=== PATIENT | female | born 1980 | race Caucasian/White ===

== ENCOUNTER 2016-10-17 10:25 | Observation (INO) | payer MEDICAID ==
[~2016-10-17] VITALS: Ht 182.9 cm; Wt 97.5 kg
[~2016-10-17 10:25] MED LIST: METH10T PO; OXYC15TA48 PO
[2016-10-17 11:01] VITALS: BP 136/80
[2016-10-17 13:20] LABS: Partial Thromboplastin Time 21.7 sec (22.64-33.71); Prothrombin Time 9.4 sec (9.37-12.3)
[2016-10-17 13:23] LABS: INR 0.86 (0.9-1.15)
[2016-10-17 13:26] LABS: Basophils # (auto) 0.1 uL; Basophils % (auto) 0.7 % (0.0-2.0); DEFINITIVE VIEW TRANSMISSION; Eosinophils # (auto) 0 uL; Eosinophils % (auto) 0.4 % (0.0-7.0); Hematocrit 27.2 % (36.0-46.0); Hemoglobin 8.7 g/dL (12.2-16.2); Lymphocytes # (auto) 2.6 uL; Lymphocytes % (auto) 22.1 % (10.0-50.0); Mean Corpuscular Hemoglobin 21.4 pg (28.0-32.0); Mean Corpuscular Hgb Conc. 31.8 g/dL (32.0-36.0); Mean Corpuscular Volume 67.3 fL (80.0-100.0); Mean Platelet Volume 10.4 fL (7.4-10.4); Monocytes # (auto) 0.7 uL; Monocytes % (auto) 5.9 % (0.0-12.0); Neutrophils # (auto) 8.3 uL; Neutrophils % (auto) 70.9 % (37.0-80.0); Platelet Count (auto) 291 10^3/uL (140-450); White Blood Cell 11.7 10^3/uL (4.4-10.8)
[2016-10-17 13:32] LABS: Albumin 2.4 g/dL (3.4-5.0); BUN/Creatinine Ratio 10.6; Bilirubin, Total 0.5 mg/dL (0.2-1.0); Calcium 8.1 mg/dL (8.5-10.1); Potassium 3.8 mmol/L (3.5-5.1); Total Protein 6.3 g/dL (6.4-8.2)
[2016-10-17 13:39] LABS: Urine Bilirubin Negative (Negative); Urine Blood Negative /uL (Negative); Urine Color Yellow (Yellow); Urine Glucose Normal (Normal); Urine Ketone Negative (Negative); Urine Nitrite Negative (Negative); Urine RBC <1 /hpf (0 - 4); Urine Squamous Epithelial Cell FEW /hpf (<5); Urine pH 7.5 (5.0-8.0)
[2016-10-17 14:02] LABS: Platelet Estimate Adequate
[2016-10-17 14:03] LABS: Anisocytosis Moderate; Hypochromia Moderate; Microcytosis Moderate; Ovalocytes FEW
== END 2016-10-17 15:00 | disposition home or self-care (01) | DRG 566 ==
LOC: ER 10:26 → LDRP 11:10
PROVIDERS: ADMIT Obstetrics & Gynecology; ATTEND Obstetrics & Gynecology
DX: O9A.213 Injury, poisoning and certain other consequences of external causes complicating pregnancy, third trimester (principal); J45.909 Unspecified asthma, uncomplicated; O99.333 Smoking (tobacco) complicating pregnancy, third trimester; S46.912A Strain of unspecified muscle, fascia and tendon at shoulder and upper arm level, left arm, initial encounter; Z83.3 Family history of diabetes mellitus; Z82.49 Family history of ischemic heart disease and other diseases of the circulatory system; Z82.3 Family history of stroke; Z85.41 Personal history of malignant neoplasm of cervix uteri; V43.52XA Car driver injured in collision with other type car in traffic accident, initial encounter; Y93.89 Activity, other specified; Y92.89 Other specified places as the place of occurrence of the external cause; Y99.8 Other external cause status; Z3A.41 41 weeks gestation of pregnancy
CPT/HCPCS: 36415; 59025; 76805; 76818; 80053; 80307; 81001; 81002; 85025; 85610; 85730; 86592; 86703; 86762; 86850; 86900; 86901; 87340; 99285; G0378

== ENCOUNTER 2016-11-14 17:08 | Inpatient (IN) | payer MEDICAID ==
[~2016-11-14] VITALS: Ht 30.5 cm; Wt 0.5 kg
[2016-11-14] MEDS ORDERED: LACT. RINGERS/OXYTOCIN 20UNITS 1,000 ML IV SCH (17:22)
[2016-11-14] MEDS ORDERED: LACTATED RINGER'S 1,000 ML IV SCH (17:22)
[2016-11-14] MEDS ORDERED: WITCH HAZEL-GLYCERIN PAD TOP PRN (17:30)
[2016-11-14] MEDS ORDERED: PHISODERM TOP SOLN 240ML BTL TOP PRN (17:30)
[2016-11-14] MEDS ORDERED: DERMOPLAST 60ML BOTTLE TOP PRN (17:30)
[2016-11-14] MEDS ORDERED: LIDOCAINE 2%HCL (LOCAL ANESTH.) INJ 20ML MDV IJ ONE (17:30)
[2016-11-14] MEDS ORDERED: METHYLERGONOVINE MALEATE 0.2 MG/ML AMP IM PRN (17:30)
[2016-11-14 18:18] LABS: Basophils # (auto) 0.1 uL; Basophils % (auto) 0.6 % (0.0-2.0); CONDITION Y; DEFINITIVE SEE PRINTOUT; Eosinophils # (auto) 0.1 uL; Eosinophils % (auto) 0.7 % (0.0-7.0); Hematocrit 29.3 % (36.0-46.0); Hemoglobin 9.2 g/dL (12.2-16.2); Lymphocytes # (auto) 2.7 uL; Lymphocytes % (auto) 21.5 % (10.0-50.0); Mean Corpuscular Hemoglobin 21.5 pg (28.0-32.0); Mean Corpuscular Hgb Conc. 31.5 g/dL (32.0-36.0); Mean Corpuscular Volume 68.4 fL (80.0-100.0); Mean Platelet Volume 10.1 fL (7.4-10.4); Monocytes # (auto) 0.9 uL; Monocytes % (auto) 6.7 % (0.0-12.0); Neutrophils % (auto) 70.5 % (37.0-80.0); Platelet Count (auto) 308 10^3/uL (140-450); White Blood Cell 12.7 10^3/uL (4.4-10.8)
[2016-11-14 18:26] LABS: Red Cell Distribution Width 22.2 % (11.6-16.0)
[2016-11-14 18:27] LABS: Albumin 2.6 g/dL (3.4-5.0); BUN/Creatinine Ratio 14.5; Calcium 8.5 mg/dL (8.5-10.1); Potassium 3.9 mmol/L (3.5-5.1)
[2016-11-14 18:31] LABS: Bilirubin, Total 0.4 mg/dL (0.2-1.0); Total Protein 6.8 g/dL (6.4-8.2)
[2016-11-14 18:34] LABS: INR 0.86 (0.9-1.15); Partial Thromboplastin Time 23.6 sec (22.64-33.71); Prothrombin Time 9.4 sec (9.37-12.3)
[2016-11-14 18:43] LABS: Urine Bilirubin Negative (Negative); Urine Ca Oxalate Crystal FEW (None Seen); Urine Color Yellow (Yellow); Urine Glucose Normal (Normal); Urine Ketone Negative (Negative); Urine Mucus FEW (None Seen); Urine Nitrite Negative (Negative); Urine RBC 3 /hpf (0 - 4); Urine Squamous Epithelial Cell MOD /hpf (<5)
[2016-11-14 18:47] LABS: Urine Blood 1+ /uL (Negative)
[2016-11-14 18:58] LABS: Microcytosis Marked
[2016-11-14 19:00] LABS: Anisocytosis Marked; Burr Cells FEW; Hypochromia Moderate; Ovalocytes FEW; Platelet Estimate Adequate; Tear Drop Cells FEW
[2016-11-14] MEDS ORDERED: CLINDAMYCIN 900MG IV 50 ML IV SCH ×2 (19:00→22:00)
[2016-11-14] MEDS ORDERED: ACETAMINOPHEN 325 MG TAB PO PRN (20:15)
[2016-11-14] MEDS: DOCUSATE CALCIUM 240 MG CAP PO SCH (20:25)
[2016-11-15] VITALS (12 sets, daily range): BP systolic 104–125; BP diastolic 59–70
[2016-11-15 06:26] LABS: Basophils # (auto) 0 uL; Basophils % (auto) 0.2 % (0.0-2.0); CONDITION Y; DEFINITIVE SEE PRINTOUT; Eosinophils # (auto) 0 uL; Eosinophils % (auto) 0.1 % (0.0-7.0); Lymphocytes # (auto) 2.3 uL; Lymphocytes % (auto) 15.8 % (10.0-50.0); Mean Corpuscular Hemoglobin 21.5 pg (28.0-32.0); Mean Corpuscular Hgb Conc. 31.8 g/dL (32.0-36.0); Mean Corpuscular Volume 67.5 fL (80.0-100.0); Mean Platelet Volume 9.5 fL (7.4-10.4); Monocytes % (auto) 6.7 % (0.0-12.0); Neutrophils # (auto) 11.4 uL; Neutrophils % (auto) 77.2 % (37.0-80.0); Platelet Count (auto) 248 10^3/uL (140-450); White Blood Cell 14.7 10^3/uL (4.4-10.8)
[2016-11-15 06:31] LABS: Red Cell Distribution Width 21.8 % (11.6-16.0)
[2016-11-15 06:48] LABS: Anisocytosis Moderate; Hypochromia Moderate; Microcytosis Moderate; Ovalocytes FEW; Platelet Estimate Adequate
[2016-11-15] MEDS: IBUPROFEN 600 MG TAB PO PRN ×2 (07:04→17:56)
[2016-11-15] MEDS: DOCUSATE CALCIUM 240 MG CAP PO SCH (10:00)
[2016-11-15] MEDS ORDERED: TERBUTALINE SULFATE 1 MG/ML 1ML VIAL SC PRN (10:30)
[2016-11-15] MEDS ORDERED: LACTATED RINGER'S 1,000 ML IV SCH (10:30)
[2016-11-16 03:15] VITALS: BP 102/60
[2016-11-16 06:08] LABS: Basophils # (auto) 0 uL; Basophils % (auto) 0.4 % (0.0-2.0); CONDITION Y; DEFINITIVE SEE PRINTOUT; Eosinophils # (auto) 0.1 uL; Eosinophils % (auto) 0.8 % (0.0-7.0); Hematocrit 25.1 % (36.0-46.0); Lymphocytes # (auto) 3.2 uL; Lymphocytes % (auto) 31.3 % (10.0-50.0); Mean Corpuscular Hgb Conc. 31.9 g/dL (32.0-36.0); Mean Corpuscular Volume 71.9 fL (80.0-100.0); Mean Platelet Volume 9.8 fL (7.4-10.4); Monocytes # (auto) 0.7 uL; Monocytes % (auto) 7.2 % (0.0-12.0); Neutrophils # (auto) 6.1 uL; Neutrophils % (auto) 60.3 % (37.0-80.0); Platelet Count (auto) 214 10^3/uL (140-450); SUSPECT SEE PRINTOUT; White Blood Cell 10.1 10^3/uL (4.4-10.8)
[2016-11-16 06:15] LABS: Red Cell Distribution Width 25.6 % (11.6-16.0)
[2016-11-16] MEDS: IBUPROFEN 600 MG TAB PO PRN (07:30)
[2016-11-16 07:35] LABS: Anisocytosis Moderate; Hypochromia Slight; Microcytosis Slight; Platelet Estimate Adequate
[2016-11-16 07:58] VITALS: BP 124/70
[2016-11-16] MEDS ORDERED: TETANUS-DIPTH-ACEL PERTUSSIS 0.5ML SYRG IM ONE (09:30)
[2016-11-16 12:00] VITALS: BP 123/65
== END 2016-11-16 14:45 | disposition home or self-care (01) | DRG 560 ==
LOC: LDRP 17:08
PROVIDERS: ADMIT Specialist; ATTEND Specialist
PROC: 10E0XZZ Delivery of Products of Conception, External Approach (ICD-10-PCS; principal; 2016-11-14)
PROC: 10907ZC Drainage of Amniotic Fluid, Therapeutic from Products of Conception, Via Natural or Artificial Opening (ICD-10-PCS; 2016-11-14)
PROC: 0KQM0ZZ Repair Perineum Muscle, Open Approach (ICD-10-PCS; 2016-11-14)
PROC: 30233N1 Transfusion of Nonautologous Red Blood Cells into Peripheral Vein, Percutaneous Approach (ICD-10-PCS; 2016-11-15)
DX: O62.3 Precipitate labor (principal); O72.1 Other immediate postpartum hemorrhage; O69.81X0 Labor and delivery complicated by cord around neck, without compression, not applicable or unspecified; Z37.0 Single live birth; O70.1 Second degree perineal laceration during delivery; Z3A.40 40 weeks gestation of pregnancy; O09.33 Supervision of pregnancy with insufficient antenatal care, third trimester; Z23 Encounter for immunization
CPT/HCPCS: 36415; 59025; 59409; 80053; 80307; 81001; 85025; 85610; 85730; 86592; 86703; 86762; 86850; 86900; 86901; 86920; 87340; 90472; 90715; 96361; 96366; J2590; J3490

== ENCOUNTER 2019-09-12 11:15 | Inpatient (IN) | payer MEDICAID ==
[2019-09-12] VITALS (14 sets, daily range): BP systolic 121–148; BP diastolic 66–98
[~2019-09-12] VITALS: Ht 182.9 cm; Wt 108.9 kg
[2019-09-12] MEDS ORDERED: LACTATED RINGER'S 1,000 ML IV SCH (11:43)
[2019-09-12] MEDS ORDERED: LACT. RINGERS/OXYTOCIN 20UNITS 1,000 ML IV SCH ×2 (11:43→13:26)
[2019-09-12] MEDS ORDERED: DERMOPLAST 60ML BOTTLE TOP PRN (11:45)
[2019-09-12] MEDS ORDERED: BUTORPHANOL TARTRATE 2 MG/1 ML VIAL IM PRN (11:45)
[2019-09-12] MEDS ORDERED: CLINDAMYCIN 900MG IV 50 ML IV SCH (11:45)
[2019-09-12] MEDS ORDERED: LIDOCAINE 1% (LOCAL ANESTH.) PF 5ml SDV IJ PRN (11:45)
[2019-09-12] MEDS ORDERED: PHISODERM TOP SOLN 240ML BTL TOP PRN (11:45)
[2019-09-12] MEDS ORDERED: WITCH HAZEL-GLYCERIN PAD TOP PRN (11:45)
[2019-09-12 12:29] LABS: Eosinophils # (auto) 0.1 10 ^3/uL (0-0.8); Hemoglobin 10.2 g/dL (12.2-16.2); Monocytes # (auto) 0.8 10 ^3/uL (0-1.3); Neutrophils # (auto) 7.5 10 ^3/uL (1.6-8.6); White Blood Cell 10.8 10^3/uL (4.4-10.8)
[2019-09-12 12:31] LABS: Basophils # (auto) 0.1 10 ^3/uL (0-0.2); Basophils % (auto) 0.7 % (0.0-2.0); Eosinophils % (auto) 0.5 % (0.0-7.0); Hematocrit 34.4 % (36.0-46.0); Lymphocytes # (auto) 2.3 10 ^3/uL (0.4-5.4); Lymphocytes % (auto) 21.7 % (10.0-50.0); Mean Corpuscular Hemoglobin 22.3 pg (28.0-32.0); Mean Corpuscular Hgb Conc. 29.7 g/dL (32.0-36.0); Monocytes % (auto) 7.2 % (0.0-12.0); Neutrophils % (auto) 69.9 % (37.0-80.0); Nucleated Red Blood Cells % 0.3 %; Platelet Count (auto) 276 10^3/uL (140-450); Red Blood Cells 4.59 10^6/uL (4.0-5.20); Red Cell Distribution Width 18.9 % (11.8-14.3)
[2019-09-12] MEDS ORDERED: TETRACAINE 1% INJ 2 ML VIAL IJ ONE (12:35)
[2019-09-12 12:37] LABS: Urine Bacteria FEW /hpf (None Seen); Urine Blood 3+ /uL (Negative); Urine Mucus FEW (None Seen); Urine Specific Gravity 1.022 (1.001-1.035); Urine WBC 58 /hpf (0 - 5)
[2019-09-12] MEDS ORDERED: MORPHINE SULF(PF) 0.5MG/ML 10ML VIAL ONE (12:41)
[2019-09-12] MEDS ORDERED: fentaNYL CITRATE 100 MCG/2 ML VL ONE (12:42)
[2019-09-12] MEDS ORDERED: MIDAZOLAM HCL 1MG/1ML-2 ML VIAL ONE (12:43)
[2019-09-12 12:45] LABS: INR 0.93 (0.9-1.15); Partial Thromboplastin Time 25.9 sec (23.64-32.05)
[2019-09-12 12:55] LABS: Albumin 2.1 g/dL (3.4-5.0); Calcium 8.1 mg/dL (8.5-10.1); Potassium 3.8 mmol/L (3.5-5.1)
[2019-09-12 12:58] LABS: Barbiturate Scree,Urine NEGATIVE (NEGATIVE); Benzodiazephine Screen, Urine NEGATIVE (NEGATIVE); Cannabinoid Screen, Urine NEGATIVE (NEGATIVE); Cocaine Screen, Urine NEGATIVE (NEGATIVE); Opiate Scree,Urine POSITIVE (NEGATIVE); Phencyclidine Screen, Urine NEGATIVE (NEGATIVE)
[2019-09-12 12:59] LABS: BUN/Creatinine Ratio 9.9; Bilirubin, Total 0.5 mg/dL (0.2-1.0); Total Protein 6.5 g/dL (6.4-8.2); Uric Acid 5.3 mg/dL (2.6-6.0)
[2019-09-12 13:06] LABS: Amphetamine Screen, Urine NEGATIVE (NEGATIVE)
[2019-09-12] MEDS ORDERED: oxyTOCIN 10 UNIT/ML 10ML VIAL ONE (13:06)
[2019-09-12] MEDS ORDERED: MORPHINE SULFATE 4 MG/ML SYR/VIAL IV PRN ×2 (13:30→13:45)
[2019-09-12] MEDS ORDERED: ceFAZolin 1GM/50ML 50 ML IV SCH (13:30)
[2019-09-12] MEDS ORDERED: ONDANSETRON HCL 4 MG/2 ML VIAL IV PRN ×3 (13:30→13:45)
[2019-09-12] MEDS ORDERED: HYDROmorphone HCL 2 MG/ML VL IV PRN ×2 (13:45)
[2019-09-12] MEDS ORDERED: KETOROLAC TROMETH 15 mg/ml 1ML VL IV PRN (13:45)
[2019-09-12] MEDS ORDERED: LABETALOL HCL 5 MG/ML 4ML SYRINGE IV PRN (13:45)
[2019-09-12] MEDS ORDERED: NALBUPHINE HCL 10 MG/1ml INJECTION SUBCUT ONE ×2 (13:45→14:00)
[2019-09-12] MEDS ORDERED: diphenhdrAMINE HCL 50 MG/1 ML VL IV PRN (13:45)
[2019-09-12] MEDS ORDERED: ACCU-CHEK COMFORT CURVE STRIP VI ONE (13:45)
[2019-09-12] MEDS ORDERED: MIDAZOLAM HCL 1MG/1ML-2 ML VIAL IV PRN (13:45)
[2019-09-12] MEDS ORDERED: ePHEDrine SULFATE 50 MG/ML AMP IV PRN (13:45)
[2019-09-12] MEDS ORDERED: NALOXONE HCL 0.4 MG/ML VIAL IV PRN (13:45)
[2019-09-12] MEDS ORDERED: DexAMETHasone SOD PHOS 10MG/1ML VIAL INJ IV PRN (13:45)
[2019-09-12] MEDS ORDERED: KETOROLAC TROMETH 30 MG/ML 1ML VIAL IV PRN (14:15)
--- NOTE | 2019-09-12 14:30 | NUR ---
Post Op for LDRP: Received patient from PACU via bed to room 8B. Patient A/A/Ox4, abdominal binder and bilateral SCD's are in place, IV fluids placed on pump and infusing per order, incisional site dressing clean/dry/intact and Madrigal Catheter to gravity draining clear yellow urine. Incentive Spirometer at bedside and instruction on proper use with return demonstration done by patient.
--- NOTE | 2019-09-12 17:50 | NUR ---
Pericare performed; chelsy pad and underpad changed; pt tolerated well.
[2019-09-12] MEDS ORDERED: ACETAMINOPHEN IV 1000 MG/100ML (10MG/ML) IV PRN ×2 (18:00→19:45)
[2019-09-12] MEDS: MORPHINE SULF INJ 2 MG/ML SYRINGE 1ML IV PRN ×2 (18:11→22:17)
--- NOTE | 2019-09-12 19:00 | NUR ---
Bottle-feeding Education: Patient encouraged not to breastfeed due to UDS positive result. Benefits of bottle feeding at this time was discussed. Patient verbalized understanding of the benefits and is aware and agrees to POC on bottle-feeding. Formula provided and instruction on formula preparation from the [facility] booklet reviewed with patient.
[2019-09-12 20:03] LABS: Basophils # (auto) 0 10 ^3/uL (0-0.2); Basophils % (auto) 0.2 % (0.0-2.0); Eosinophils # (auto) 0 10 ^3/uL (0-0.8); Hemoglobin 9.7 g/dL (12.2-16.2); Lymphocytes # (auto) 1.4 10 ^3/uL (0.4-5.4); Nucleated Red Blood Cells % 0.1 %; Red Cell Distribution Width 18.8 % (11.8-14.3)
[2019-09-12 20:04] LABS: Eosinophils % (auto) 0.1 % (0.0-7.0); Hematocrit 31.3 % (36.0-46.0); Lymphocytes % (auto) 8.4 % (10.0-50.0); Mean Corpuscular Hemoglobin 21.8 pg (28.0-32.0); Mean Corpuscular Hgb Conc. 31.1 g/dL (32.0-36.0); Mean Corpuscular Volume 70.1 fL (80.0-100.0); Monocytes # (auto) 0.8 10 ^3/uL (0-1.3); Monocytes % (auto) 4.9 % (0.0-12.0); Neutrophils # (auto) 14.2 10 ^3/uL (1.6-8.6); Neutrophils % (auto) 86.4 % (37.0-80.0); Platelet Count (auto) 263 10^3/uL (140-450); Red Blood Cells 4.47 10^6/uL (4.0-5.20); White Blood Cell 16.5 10^3/uL (4.4-10.8)
[2019-09-12] MEDS: LACTATED RINGER'S 1,000 ML IV SCH (20:45)
[2019-09-12] MEDS: CLINDAMYCIN 900MG IV 50 ML IV SCH ×2 (21:03→22:00)
[2019-09-13] VITALS (10 sets, daily range): BP systolic 128–147; BP diastolic 72–98
[2019-09-13] MEDS: MORPHINE SULF INJ 2 MG/ML SYRINGE 1ML IV PRN ×3 (02:01→10:44)
--- NOTE | 2019-09-13 02:15 | NUR ---
Ambulation to bedside chair: Pericare with teaching provided. Madrigal catheter remains intact no kinks, hung below bladder. ABD incision dressing clean dry and intact. Fundus firm ay U with scant bleeding. Patient OOB with standby assistance by RN x2. Patient ambulated with assistance to chair. Clean gown provided and bed linen changed. Patient ambulated back to bed with steady gait, re placed SCD on bilateral legs and no distress noted.
[2019-09-13 05:11] LABS: RPR Non Reactive (Non Reactive)
[2019-09-13] MEDS: CLINDAMYCIN 900MG IV 50 ML IV SCH ×3 (05:32→21:53)
--- NOTE | 2019-09-13 05:35 | NUR ---
Lee catheter dc'd Order to discontinue lee catheter. Lee dc'd with clean technique following deflation of balloon. 800ml of yellow urine output. Patient tolerated well with no complaints of pain. Continue care.
--- NOTE | 2019-09-13 05:36 | NUR ---
Dressing removed from incision 10 Jitendra intact, incision has no redness draining swelling or edema. cool to touch.
[2019-09-13] MEDS: LACTATED RINGER'S 1,000 ML IV SCH (05:37)
[2019-09-13 06:07] LABS: Rubella Antibodies, IgG 2.34 index (Immune >0.99)
--- NOTE | 2019-09-13 06:24 | NUR ---
DR CULVER CALLED, PAIN 01/25 AND BLOOD PRESSURE REVIEWED, ORDERS RECEIVED
[2019-09-13] MEDS ORDERED: KETOROLAC TROMETH 15 mg/ml 1ML VL IV ONE (06:30)
[2019-09-13] MEDS ORDERED: ACETAMINOPHEN IV 1000 MG/100ML (10MG/ML) IV PRN ×2 (06:30→13:00)
[2019-09-13 07:37] LABS: Eosinophils # (auto) 0 10 ^3/uL (0-0.8); Monocytes # (auto) 0.5 10 ^3/uL (0-1.3); Neutrophils # (auto) 11.9 10 ^3/uL (1.6-8.6); Nucleated Red Blood Cells % 0.1 %
[2019-09-13 07:39] LABS: Basophils # (auto) 0.1 10 ^3/uL (0-0.2); Basophils % (auto) 0.4 % (0.0-2.0); Hematocrit 30.6 % (36.0-46.0); Hemoglobin 9.4 g/dL (12.2-16.2); Lymphocytes % (auto) 7.7 % (10.0-50.0); Mean Corpuscular Hemoglobin 21.6 pg (28.0-32.0); Mean Corpuscular Hgb Conc. 30.7 g/dL (32.0-36.0); Mean Corpuscular Volume 70.4 fL (80.0-100.0); Monocytes % (auto) 3.4 % (0.0-12.0); Neutrophils % (auto) 88.5 % (37.0-80.0); Platelet Count (auto) 263 10^3/uL (140-450); Red Blood Cells 4.34 10^6/uL (4.0-5.20); Red Cell Distribution Width 18.5 % (11.8-14.3); White Blood Cell 13.4 10^3/uL (4.4-10.8)
--- NOTE | 2019-09-13 10:40 | NUR ---
Ambulation: Patient OOB with standby assistance by RN. Patient ambulated to bathroom with steady gait. Patient able to void without difficulty. Pericare teaching provided with returned demonstration by patient. Clean gown provided and bed linen changed. Patient ambulated back to bed with steady gait and no distress noted.
[2019-09-13] MEDS ORDERED: HYDROcodone-ACET 5/325MG TAB PO PRN (13:30)
[2019-09-13] MEDS: HYDROcodone-ACET 5/325MG TAB PO PRN ×2 (14:19→21:54)
--- NOTE | 2019-09-13 15:20 | NUR ---
PT ASSISTED TO RESTROOM VIA STANDBY ASSISTANCE, STEADY GAIT NOTED WITHOUT DISTRESS. PT VOIDED 400ML'S.
[2019-09-13] MEDS: IBUPROFEN 800 MG TAB PO PRN (18:31)
--- NOTE | 2019-09-13 19:00 | NUR ---
Spoke with Ileana Donahue CNM SBAR given, Clarification on scheduled Q8 Cleocin 900mg /50ml IV , Per Ileana Donahue CNRuth continue with Q8 ABX orders.
[2019-09-13] MEDS: DOCUSATE SOD 100 MG CAP PO SCH (21:53)
[2019-09-14] MEDS: IBUPROFEN 800 MG TAB PO PRN ×2 (02:10→09:34)
[2019-09-14 03:15] VITALS: BP 145/77
[2019-09-14] MEDS: HYDROcodone-ACET 5/325MG TAB PO PRN ×3 (05:49→22:12)
[2019-09-14] MEDS: CLINDAMYCIN 900MG IV 50 ML IV SCH ×3 (05:49→22:00)
[2019-09-14 07:00] VITALS: BP 134/71
--- NOTE | 2019-09-14 08:42 | NUR ---
Discharge: Discharge instructions given. Pt encouraged to follow up with [employer]ER as instructed. All questions and concerns addressed. Patient verbalized understanding. Medication reconciliation completed.
--- NOTE | 2019-09-14 08:54 | NUR ---
Spoke to Guera at pharmacy regarding latex allergy with TDAP vaccine. Patient states gets skin reaction when in contact with latex. Per pharmacist plastic rubber may have some latex in it, if possible to draw up solution my removing rubber stopper and monitor for signs of allergy.
[2019-09-14] MEDS ORDERED: TETANUS-DIPTH-ACEL PERTUSSIS 0.5ML SYR Tdap IM ONE (09:00)
--- NOTE | 2019-09-14 09:24 | NUR ---
SS consult/ Spoke to Mely SS following up on consult done yesterday. Reported patients positive for opioids and Alcohol level 6.0. Per Mely will be by today to speak to patient and move forward.
[2019-09-14] MEDS: DOCUSATE SOD 100 MG CAP PO SCH ×2 (09:34→22:00)
[2019-09-14 11:05] VITALS: BP 153/71
--- NOTE | 2019-09-14 13:53 | NUR ---
SCD Advised patient to wear SCD when no ambulating to prevent DVT formation. Addendum: 09/14/19 at 1353 by Deonna Feldman RN Amended: Links added.
--- NOTE | 2019-09-14 14:10 | NUR ---
SS consult regarding positive drug screen for methadone and alcohol. The pt admitted to using methadone and stated she has been on it for at least 5 yrs. The mother goes to the [facility] to obtain her methadone. However the drug screen was also positive for alcohol which she did not mention. Baby was negative for drugs. However baby began to withdraw and was shaking, screaming and not able to eat. The decision was made to have the transferred to NICU at [facility]. Addendum: 09/14/19 at 1419 by CIRA VALENTE Amended: Links added. Addendum: 09/14/19 at 1422 by CIRA VALENTE Spoke with [facility] Report number [id number]. The Radiology Director was Oleg.
[2019-09-14 14:55] VITALS: BP 142/82
--- NOTE | 2019-09-14 15:03 | NUR ---
Report given to A Marielle Rn who will assume patient care.
[2019-09-14 19:15] VITALS: BP 136/79
[2019-09-14 22:44] VITALS: BP 141/75
[2019-09-15 03:00] VITALS: BP 141/76
[2019-09-15] MEDS: HYDROcodone-ACET 5/325MG TAB PO PRN (03:34)
[2019-09-15] MEDS: CLINDAMYCIN 900MG IV 50 ML IV SCH (06:00)
--- NOTE | 2019-09-15 06:15 | NUR ---
Report received from Amaury Thurman RN on stable pt. Assumed care. Addendum: 09/15/19 at 0628 by Karla Hernández RN Amended: Links added.
--- NOTE | 2019-09-15 06:35 | NUR ---
Lower abdominal incision open to air, well approximated with steri strips intact. No redness or drainage noted. Abdominal binder and SCD's in place. Incentive Spirometer at bedside, pt educated on importance of use and how to use IS. Pt verbalizes understanding. Addendum: 09/15/19 at 0909 by Karla Hernández RN Amended: Links added.
[2019-09-15 07:18] VITALS: BP 151/87
[2019-09-15] MEDS: IBUPROFEN 800 MG TAB PO PRN (07:30)
[2019-09-15 08:40] VITALS: BP 134/72
--- NOTE | 2019-09-15 09:20 | NUR ---
Discharge: Discharge instructions given as ordered. Pt encouraged to follow up with [facility] PH[employer]ICAL [employer] [facility]PRAISER as instructed. All questions and concerns addressed. Patient verbalized understanding. Medication reconciliation completed and copy given to patient. All required/requested vaccines given and copies of vaccinations given to patient. Patient encouraged to prepare to depart unit.
--- NOTE | 2019-09-15 09:35 | NUR ---
Discharge: Patient taken to vehicle via wheelchair with all personal belongings, accompanied by staff and family member. No distress noted at time of departure, no adverse changes in status since initial assessment.
[2019-10-04 07:25] LABS: Alcohol, Urine < 3.0 mg/dL (0-5)
== END 2019-09-15 09:35 | disposition home or self-care (01) | DRG 540 ==
LOC: LDRP 11:15 → OBSVTOIN 11:40 → LDRP 11:58
PROVIDERS: ADMIT Obstetrics & Gynecology; ATTEND Obstetrics & Gynecology
PROC: 10D00Z1 Extraction of Products of Conception, Low, Open Approach (ICD-10-PCS; principal; 2019-09-12 12:39)
DX: O36.63X0 Maternal care for excessive fetal growth, third trimester, not applicable or unspecified (principal); O24.429 Gestational diabetes mellitus in childbirth, unspecified control; Z37.0 Single live birth; Z3A.39 39 weeks gestation of pregnancy; Z88.0 Allergy status to penicillin; Z88.8 Allergy status to other drugs, medicaments and biological substances; Z91.040 Latex allergy status; Z11.59 Encounter for screening for other viral diseases
CPT/HCPCS: 36415; 51702; 59025; 76805; 80053; 80307; 81001; 81002; 82962; 83036; 84112; 84550; 85025; 85610; 85730; 86592; 86703; 86762; 86850; 86900; 86901; 87340; 90715; 96372; 96375; G0378; J0131; J2250; J2405; J2590; J3490

== ENCOUNTER 2024-04-24 15:44 | Emergency (ER) | payer MEDICAID ==
[~2024-04-24] VITALS: Ht 182.9 cm; Wt 118.8 kg
[~2024-04-24 15:44] MED LIST changes: +METH-1214 PO; -METH10T PO
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
[2024-04-24] MEDS ORDERED: HYDR-4902 PO (18:17)
[2024-04-24 18:32] VITALS: BP 136/82; PULSE 89; RESP 20; TEMP 98; O2SAT 96
== END 2024-04-24 18:34 | disposition home or self-care (01) ==
LOC: ER 15:44
DX: S22.42XA Multiple fractures of ribs, left side, initial encounter for closed fracture (principal); J45.909 Unspecified asthma, uncomplicated; Z98.890 Other specified postprocedural states; Z88.0 Allergy status to penicillin; Z88.8 Allergy status to other drugs, medicaments and biological substances; V89.2XXA Person injured in unspecified motor-vehicle accident, traffic, initial encounter; Y93.89 Activity, other specified; Y92.89 Other specified places as the place of occurrence of the external cause; Y99.8 Other external cause status
CPT/HCPCS: 71101